=== PATIENT | female | born 1990 | race Caucasian/White ===

== ENCOUNTER → 2016-05-25 | Day surgery (SDC) | payer BC ==
[2016-05-19 15:27] VITALS: Ht 160 cm; Wt 65.9 kg
[~2016-05-25] VITALS: Ht 160 cm; Wt 65.9 kg
[~2016-05-25] MED LIST: ATROPINE SULFATE 0.1 MG/ML 5ML SYR IV PRN; BCPILLS PO; BUPIVACAINE 0.5 % 5 MG/1 ML MPF 30ML VIAL ONE; CEFAZOLIN 1000MG/55 ML D5W IV SCH; DEXAMETHASONE SOD INJ 4 MG/ML VIAL ONE; EpHEDrine SULFATE INJ 50 MG/ML AMP IV PRN; EpINEphrine INJ 1MG/ML AMP 1 MG/ML AMP ONE; FENTANYL CITRATE INJ 50 MCG/1 ML 2 ML VIAL IV PRN; FENTANYL CITRATE INJ 50 MCG/1 ML 2 ML VIAL ONE; HYDR-5688 PO; KETOROLAC TROMETHAMINE 30 MG/ML VIAL ONE; LACTATED RINGER'S 1000ML 1,000 ML IV SCH; LIDOCAINE HCL 2% 2 ML VIAL (20MG/ML) ONE; MIDAZOLAM HCL 1 MG/ML 2ML VIAL ONE; ONDANSETRON INJ 2 MG/ML 2 ML VIAL IV PRN; ONDANSETRON INJ 2 MG/ML 2 ML VIAL ONE; OXYCODONE/ACETAMINOPHEN 5-325 TAB ONE; OXYCODONE/ACETAMINOPHEN 5-325 TAB PO PRN; PROMETHAZINE HCL INJ 6.25 MG in SODIUM CHLORIDE 0.9% 50ML 50 ML IV PRN; PROPOFOL IV EMULSION 10 MG/ML 20 ML VIAL IV ONE; ROPIVACAINE 0.5% 5 MG/ML 30 ML VIAL ONE; SODIUM CHLORIDE 0.9% 1000ML 1,000 ML IV SCH
--- NOTE | 2016-05-25 07:33 | History & Physical Bridge - [place] ---
H&P Re-Evaluation Bridge Note: I have examined the patient, reviewed the History & Physical and in the interval since the performance of the History & Physical I have noted the following changes of clinical significance: No changes noted
--- NOTE | 2016-05-25 08:30 | [facility] Post Operative Brief Note ---
Immediate Operative Summary Operative Date May 25, 2016. Pre-Operative Diagnosis Right Knee Plica Band Post-Operative Diagnosis Same Procedure(s) Performed Right Knee Arthroscopy, Plica Excision Surgeon Dr. Ozuna Multiple Needle Stitcher Surgeon(s) Laurence Hager PA-C Estimated Blood Loss 0 mL Findings ABOVE Specimens None Anesthesia LMA Complication(s) None Disposition Recovery Room / PACU
--- NOTE | 2016-05-25 08:45 | Discharge Instructions-SurgCtr ---
Discharge Instructions Visit Reason for Visit: Right Knee Synovial Plica, Pain Discharge Discharge Diagnosis / Problem: SAME ABOVE Discharge Goals Goal(s): Decrease discomfort, Improve function Activity Recommendations Activity Limitations: as noted below Lifting Limitations: gradually increase as tolerated Exercise/Sports Limitations: until after follow-up appointment Anesthesia . Post Anesthesia Instructions: If you have had General Anesthesia or IV Sedation: * Do not drive today. * Resume driving when surgeon permits. * Do not make important decisions or sign legal documents today. * Call surgeon for: 1. Temperature elevations greater than 101 degrees F. 2. Uncontrollable pain. 3. Excessive bleeding. 4. Persistent nausea and vomiting. 5. Medication intolerance (nausea, vomiting or rash). * For nausea and vomiting use only clear liquids such as: tea, soda, bouillon until nausea subsides, then gradually increase diet as tolerated. * If you have any concerns or questions, call your surgeon's office. If physician is unavailable and it is an emergency, call 911 or go to the nearest emergency room. . Instructions / Follow-Up Instructions / Follow-Up MEDICATIONS: * Resume previous medications unless instructed otherwise by your surgeon. * Always take pain medication on a full stomach or with food to avoid upset stomach. * Do not drink alcohol or drive while taking narcotics. * Ibuprofen or Tylenol may be taken if narcotic not needed. SPECIAL CARE INSTRUCTIONS: __ None _X_ Keep extremity elevated and iced x 48 hours; apply ice 20-30 minutes 8-10 times/day. May remove at night. __ Crutches __ May discard when able __ Brace/Post-op shoe __ 24 hrs/day __ Remove at night _X_ Dressing __ Maintain until seen in office, may shower with plastic over site _X_ Remove dressings in 24-48 hours and then may shower _X_ Cover incisions with band-aids after showering __ Do not remove steri-strips Call physician if chills or temperature rises above 102 degrees or pain unrelieved by prescribed pain medications. Office [phone] Diet Recommendations Home Diet: resume previous diet Procedures Procedures Performed: Right Knee Arthroscopy, Plica Excision Pending Studies Studies pending at discharge: no Medical Emergencies . Who to Call and When: Medical Emergencies: If at any time you feel your situation is an emergency, please call 911 immediately. . Non-Emergent Contact Non-Emergency issues call your: Primary Care Provider . . "Provider Documentation" section prepared by Zander Hager.
--- NOTE | 2016-05-25 09:19 | OPERATIVE REPORT ---
DATE OF OPERATION: 05/25/2016 PREOPERATIVE DIAGNOSIS: Right knee painful pathologic plica band. POSTOPERATIVE DIAGNOSIS: Same. PROCEDURE: Excision of painful plica band, right knee. SURGEON: Dr. Ozuna. PHOTOGRAPHIC ARTIST: Zander Hager PA-C. ANESTHESIOLOGIST: Dr. Ramon. ANESTHESIA: LMA. DRAINS: None. COMPLICATIONS: None. CONDITION: The patient tolerated the procedure well and returned to recovery in apparent satisfactory condition. INDICATIONS FOR SURGERY: Christa is an avid runner, [id number], has had chronic right knee pain and discomfort. She has had injections, physical therapy with modification of activities and medication. We went over treatment options and she elected to go ahead and removal of plica band. Procedure, expected outcomes, side effects, risks were all explained in detail including no guarantees to the operation. DESCRIPTION OF PROCEDURE: The patient was taken to the OR at which time she was placed supine on the operating table and put to sleep by the anesthesia department. Examination of the right knee was performed. Ligamentous [place] was stable. Went ahead and prepped and draped in the usual sterile fashion. Began arthroscopic examination in the anteromedial and anterolateral portals. Examination of the knee joint was performed and the medial compartment was examined and meniscus and articular surface was in good shape. ACL, lateral compartment were fine also. We found a small plica band in the medial aspect of her knee up across the suprapatellar joint. The articular surfaces were in good shape. No other abnormalities were noted. We brought a full radius resector and turned it back to a stable tissue. The knee then was copiously irrigated. All cannulas were removed. Portals were closed with 4-0 nylon sutures. 30 mL of ropivacaine, 10 mg of Toradol, and 1 mL of epinephrine was placed in the knee joint. Placed a sterile dressing of Xeroform, 4 x 4, ABD, Sof-Rol, and Rojelio bandage and returned back to recovery room in apparent satisfactory condition. SURGICAL FINDINGS: Included a small plica band in the suprapatellar medial compartment, right knee. I attest to the content of the Intraoperative Record and any orders documented therein. Any exceptio ns are noted below.
[2016-05-25 09:20] VITALS: TEMP 36.6
--- NOTE | 2016-05-25 09:25 | Anesthesia Progress Nt - [facility] ---
Anesthesia Post Op Note Date & Time May 25, 2016 at 09:25 Vital Signs Pain Intensity: 0 Vital Signs Past 12 Hours Date Time Temp Pulse Resp B/P Pulse Ox O2 Delivery O2 Flow Rate FiO2 05/25/16 09:06 64 13 100 05/25/16 09:06 63 13 05/25/16 09:05 37.0 61 16 120/72 100 Room Air 05/25/16 09:04 116/78 05/25/16 09:01 61 16 100 05/25/16 09:01 61 16 05/25/16 08:59 119/69 05/25/16 08:56 64 17 100 05/25/16 08:56 63 17 05/25/16 08:54 120/74 05/25/16 08:51 65 18 05/25/16 08:51 63 18 100 05/25/16 08:49 125/77 05/25/16 08:46 87 17 100 05/25/16 08:46 85 17 05/25/16 08:44 121/75 05/25/16 08:41 36.1 74 12 124/77 100 Diffusion Mask 6 05/25/16 08:41 73 15 100 05/25/16 08:41 71 15 05/25/16 07:17 36.6 66 16 124/85 99 Room Air Notes Mental Status: alert / awake / arousable, participated in evaluation Pt Amnestic to Procedure: Yes Nausea / Vomiting: adequately controlled Pain: adequately controlled Airway Patency, RR, SpO2: stable & adequate BP & HR: stable & adequate Hydration State: stable & adequate Anesthetic Complications: no major complications apparent
[2016-05-25 09:48] VITALS: BP 120/84; PULSE 63; O2SAT 100
== END | disposition home or self-care (01) ==
LOC: X.SURG 06:30
PROVIDERS: ATTEND Orthopaedic Surgery
DX: M67.51 Plica syndrome, right knee (principal); Z98.890 Other specified postprocedural states; Z79.3 Long term (current) use of hormonal contraceptives; Z68.25 Body mass index [BMI] 25.0-25.9, adult